=== PATIENT | female | born 1960 | race Caucasian/White ===

== ENCOUNTER → 2016-09-05 | Outpatient (CLI) | payer OTHER ==
--- NOTE | 2016-09-05 16:12 | MAMMOGRAPHY REPORT ---
BILATERAL DIGITAL SCREENING MAMMOGRAM TOMOSYNTHESIS WITH CAD: 09/05/2016 CLINICAL HISTORY: Routine screening. Patient has no complaints. TECHNIQUE: Breast tomosynthesis in addition to standard 2D mammography was performed. Current study was also evaluated with a Computer Aided Detection (CAD) system. COMPARISON: Comparison is made to exams dated: 09/12/2015 mammogram, 09/01/2015 mammogram, 08/30/2014 ma mmogram, 03/04/2014 mammogram, 09/03/2013 mammogram, and 08/14/2012 mammogram - [facility]. BREAST COMPOSITION: There are scattered areas of fibroglandular density in both breasts. FINDINGS: No suspicious masses, calcifications, or areas of architectural distortion are noted in e ither breast. There has been no significant interval change compared to prior exams. Nodular asymme try in the left lateral posterior breast on the cc view has the appearance of normal overlapping fib roglandular tissue on the tomosynthesis images, and appears similar to some of the prior exams inclu ding the 2011 and 2008 exams. IMPRESSION: ACR BI-RADS CATEGORY 2: BENIGN There is no mammographic evidence of malignancy. A 1 year screening mammogram is recommended. The p atient will receive written notification of the results. Approximately 10% of breast cancers are not detected with mammography. A negative mammographic repor t should not delay biopsy if a clinically suggestive mass is present. Katelyn Rapp M.D. /:09/05/2016 13:39:17 Harness Builder: Eva Curry, [facility] letter sent: Normal 1/2 BI-RADS Code: ACR BI-RADS Category 2: Benign
== END | disposition home or self-care (01) ==
LOC: C.MAMM 08:06
PROVIDERS: ATTEND Obstetrics & Gynecology
DX: Z12.31 Encounter for screening mammogram for malignant neoplasm of breast (principal)

== ENCOUNTER → 2016-12-13 | Outpatient (CLI) | payer OTHER | END | disposition home or self-care (01) | LOC: C.PAPS 11:15 | PROVIDERS: ATTEND Obstetrics & Gynecology | DX: Z12.4 Encounter for screening for malignant neoplasm of cervix (principal) ==

== ENCOUNTER → 2017-08-28 | Outpatient (CLI) | payer OTHER | END | disposition home or self-care (01) | LOC: C.LABBC 08:51 | PROVIDERS: ATTEND Internal Medicine | DX: E03.9 Hypothyroidism, unspecified (principal); E55.9 Vitamin D deficiency, unspecified; J45.909 Unspecified asthma, uncomplicated ==

== ENCOUNTER → 2017-09-10 | Outpatient (CLI) | payer OTHER ==
--- NOTE | 2017-09-10 15:09 | MAMMOGRAPHY REPORT ---
BILATERAL DIGITAL SCREENING MAMMOGRAM TOMOSYNTHESIS WITH CAD: 09/10/2017 CLINICAL HISTORY: Routine screening. The patient has no current complaints. TECHNIQUE: Breast tomosynthesis in addition to standard 2D mammography was performed. Current study was also evaluated with a Computer Aided Detection (CAD) system. COMPARISON: Comparison is made to exams dated: 09/05/2016 mammogram, 09/12/2015 mammogram, 09/01/2015 ma mmogram, 08/30/2014 mammogram, 03/04/2014 mammogram, and 08/27/2013 mammogram - [facility] er. BREAST COMPOSITION: There are scattered areas of fibroglandular density in both breasts. FINDINGS: No suspicious masses, calcifications, or areas of architectural distortion are noted in ei ther breast. There has been no significant interval change compared to prior exams. IMPRESSION: ACR BI-RADS CATEGORY 1: NEGATIVE There is no mammographic evidence of malignancy. A 1 year screening mammogram is recommended. The pa tient will receive written notification of the results. Approximately 10% of breast cancers are not detected with mammography. A negative mammographic report should not delay biopsy if a clinically suggestive mass is present. Katelyn Rapp M.D. ah/:09/10/2017 08:20:55 Paymaster Of Purses: Eva HERMAN(Juan)(M), [facility] letter sent: Normal 1/2 BI-RADS Code: ACR BI-RADS Category 1: Negative
== END | disposition home or self-care (01) ==
LOC: C.MAMM 08:00
PROVIDERS: ATTEND Obstetrics & Gynecology
DX: Z12.31 Encounter for screening mammogram for malignant neoplasm of breast (principal)

== ENCOUNTER → 2017-10-28 | Outpatient (CLI) | payer OTHER | END | disposition home or self-care (01) | LOC: C.LABBC 08:38 | PROVIDERS: ATTEND Internal Medicine | DX: E03.9 Hypothyroidism, unspecified (principal) ==

== ENCOUNTER 2020-08-13 01:35 | Inpatient (IN) ==
[2020-08-13] MEDS ORDERED: ASPIRIN CHEW 324 MG PO STA (01:54)
[2020-08-13] MEDS ORDERED: NITROGLYCERIN SL 0.4 MG/TAB TAB SL PRN (01:54)
[2020-08-13 02:09] LABS: Basophils # (auto) 0.01 K/uL (0-0.2); Basophils % (auto) 0.1 %; Eosinophils # (auto) 0.08 K/uL (0-0.5); Eosinophils % (auto) 0.9 %; Hematocrit (blood only) 38.2 % (37-47); Hemoglobin 12.8 g/dL (12.0-16.0); Immature Granulocytes # (auto) 0.01 K/uL (0.00-0.02); Immature Granulocytes % (auto) 0.1 %; Lymphocytes # (auto) 3.26 K/uL (1.2-3.4); Lymphocytes % (auto) 34.9 %; Mean Corpuscular Hemoglobin 29.9 pg (25-34); Mean Corpuscular Hgb Conc 33.5 g/dL (32-36); Mean Corpuscular Volume 89.3 fL (80-100); Mean Platelet Volume 9.3 fL (7.4-10.4); Monocytes # (auto) 0.82 K/uL (0.11-0.59); Monocytes % (auto) 8.8 %; Neutrophils # (auto) 5.15 K/uL (1.4-6.5); Neutrophils % (auto) 55.2 %; Platelet Count 171 K/uL (130-400); RDW Coefficient of Variation 13.3 % (11.5-14.5); RDW Standard Deviation 43.3 fL (36.4-46.3); Red Blood Count 4.28 M/uL (4.2-5.4); White Blood Count 9.33 K/uL (4.8-10.8)
[2020-08-13 02:11] LABS: iSTAT Creatinine 0.7 mg/dl (0.6-1.3); iSTAT Hemoglobin 12.6 g/dl (12.0-16.0); iSTAT Ionized Calcium 1.13 mmol/l (1.12-1.32); iSTAT Potassium 3.5 mmol/L (3.3-5.0)
[2020-08-13] MEDS ORDERED: ONDANSETRON INJ 2 MG/ML 2 ML VIAL IV STA (02:14)
[2020-08-13] MEDS ORDERED: NITROGLYCERIN SL 0.4 MG/TAB TAB SL STA (02:14)
[2020-08-13 02:27] LABS: Albumin Level 3.7 gm/dl (3.4-5.0); Calcium 8.4 mg/dl (8.5-10.1); Creatinine Clr Calc Pharmacy 69.5 ml/min; Est GFR (Non-African American) 81.9; Potassium 3.5 mmol/L (3.5-5.1)
[2020-08-13 02:37] LABS: D Dimer 380 ug/L FEU (0-500); Partial Thromboplastin Time 26.7 Seconds (21.0-31.0); Prothrombin Time 10.9 Seconds (9.0-12.0)
[2020-08-13 02:39] LABS: Albumin Globulin Ratio 0.9 (0.9-2); Bilirubin,Total 0.3 mg/dl (0.2-1); Globulin 4.1 gm/dl (2.5-4.0); Total Protein 7.8 gm/dl (6.4-8.2); Troponin I 0.087 ng/ml (0-0.045)
[2020-08-13] MEDS ORDERED: NITROGLYCERIN 2% OINTMENT 30GM TUBE ONE (02:43)
[2020-08-13] MEDS ORDERED: Heparin IV Standard *NO* Bolus ONE (02:46)
[2020-08-13] MEDS ORDERED: ACETAMINOPHEN 1,000 MG/100 ML VIAL IV STA ×2 (02:46→07:08)
[2020-08-13] MEDS ORDERED: NITROGLYCERIN 2% OINTMENT 30GM TUBE EXT ONE (02:46)
--- NOTE | 2020-08-13 03:06 | Emergency Department Note ---
History of Present Illness General Chief complaint: Cardiac Assessment Stated complaint: CHEST PAINS,INDIGESTION,UPSET STOMACH,COUGH Time Seen by Provider: 08/13/20 01:43 History of Present Illness Maximum Pain Intensity: 9 This 60-year-old female with borderline blood pressure cholesterol and hypothyroidism presents to the ER complaining of chest pain Location: Chest back and arms Quality: Stabbing Severity: Severe Duration: Tonight Timing: Started on midnight Context: Patient was concerned and came in Modifying factors: better with nothing; worse with activity Patient denies any prior heart testing. No family history of heart disease. She does not smoke. Patient states she got nauseated and the pain radiated to her jaw tonight. Patient denies fever, chills, abdominal pain, numbness, tingling, localized weakness. Home Medications Medication Instructions Recorded Confirmed Type cetirizine 5 mg tablet 5 mg PO DAILY PRN 02/18/19 08/13/20 History conj estrogen-medroxyprogesterone 1 tab PO DAILY 02/18/19 08/13/20 History 0.625 mg-2.5 mg tablet albuterol sulfate 90 mcg/actuation 1 puffs INH Q4H PRN gm 06/08/19 08/13/20 History aerosol inhaler cholecalciferol (vitamin D3) 25 2,000 units PO DAILY tab 06/08/19 08/13/20 History mcg (1,000 unit) tablet [place] Thyroid 60 mg tablet 60 mg PO 4XWK #52 tab NS 04/24/20 08/13/20 Rx rosuvastatin 5 mg tablet 5 mg PO DAILY #90 tab 05/29/20 08/13/20 Rx azelaic acid 15 % topical foam 1 applic TOPICAL BID 06/21/20 08/13/20 History [place] Thyroid 90 mg tablet 90 mg PO 3XWK #30 tab NS 07/28/20 08/13/20 Rx Allergies Allergy/AdvReac Type Severity Reaction Status Date / Time fluticasone Allergy Intermediate Hives Verified 08/13/20 02:07 [From Advair Diskus] Iodinated Contrast Media Allergy Intermediate HIVES/RASH Verified 08/13/20 02:07 salmeterol Allergy Intermediate Hives Verified 08/13/20 02:07 [From Advair Diskus] sulfamethoxazole Allergy Intermediate RED Verified 08/13/20 02:07 [From Bactrim] BLOTCHY HIVES trimethoprim [From Bactrim] Allergy Intermediate RED Verified 08/13/20 02:07 BLOTCHY HIVES iodine Allergy Mild RASH/HIVES Verified 08/13/20 02:07 morphine AdvReac Intermediate Vomiting Verified 08/13/20 02:07 Past Med/Surg History Medical History Asthma Hyperlipidemia Hypothyroidism Vitamin D deficiency Surgical History H/O total thyroidectomy History of delivery x2 Family History Aunt Breast cancer Father Prostate cancer Cancer Mother Hypertension Hearing loss Other No family history of allergies No family history of bleeding disorder Denies family history of Ovarian cancer Heart disease Myocardial infarction Colorectal cancer Stroke Social History Smoking Status: Never smoker Second Hand Exposure: No; Hx Alcohol Use: Yes Alcohol type: beer, wine and hard liquor Alcohol Intake Frequency: 2-4 x/Month Hx Substance Use: No Preferred Language: Azeri Communication Ability: Effective Visual Impairment: Limited Hearing Ability: Normal Second Operator Required: No marital status: Current Living Situation: Spouse current occupational status: employed 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 How many Children do You have: 2 Feels Safe at Home: Yes Childhood Exposure to Second-Hand Smoke: No caffeine: Yes Dental Care, Regularly: Yes Physical Activity Frequency: 1-2 Times per Week Seatbelt Use: always Sunscreen Use: Yes Review of Systems A total of 10 systems reviewed and were otherwise negative Physical Exam Vital Signs Vital Signs - 24 hr 08/13/20 01:40 08/13/20 01:50 08/13/20 01:52 Temperature 36.9 C Temperature Source Temporal Artery Scan Pulse Rate 91 H 95 H 92 H Pulse Rate from SpO2 Sensor Pulse Rhythm Regular Pulse Strength Normal Respiratory Rate 20 21 23 Respiratory Effort / Characteristics Non-Labored Spontaneous Respiratory Depth Normal Blood Pressure 175/104 H 177/102 H Blood Pressure Mean 127 127 Blood Pressure Position Sitting Pulse Oximetry 98 Oxygen Delivery Method Room Air Sepsis Recent Fever Within 48 Hours No Sepsis New/Unexplained Change in Mental Status N/A Sepsis Action Taken by Nursing No Action Required 08/13/20 01:55 08/13/20 02:00 08/13/20 02:05 Temperature Temperature Source Pulse Rate 93 H 88 98 H Pulse Rate from SpO2 Sensor Pulse Rhythm Pulse Strength Respiratory Rate 21 18 17 Respiratory Effort / Characteristics Respiratory Depth Blood Pressure Blood Pressure Mean Blood Pressure Position Pulse Oximetry Oxygen Delivery Method Sepsis Recent Fever Within 48 Hours Sepsis New/Unexplained Change in Mental Status Sepsis Action Taken by Nursing 08/13/20 02:06 08/13/20 02:10 08/13/20 02:11 Temperature Temperature Source Pulse Rate 92 H 98 H 91 H Pulse Rate from SpO2 Sensor 91 H 97 H 93 H Pulse Rhythm Pulse Strength Respiratory Rate 17 18 20 Respiratory Effort / Characteristics Respiratory Depth Blood Pressure 158/100 H 148/101 H Blood Pressure Mean 119 114 Blood Pressure Position Pulse Oximetry 99 98 98 Oxygen Delivery Method Sepsis Recent Fever Within 48 Hours Sepsis New/Unexplained Change in Mental Status Sepsis Action Taken by Nursing 08/13/20 02:13 08/13/20 02:15 08/13/20 02:16 Temperature Temperature Source Pulse Rate 90 94 H Pulse Rate from SpO2 Sensor 89 93 H Pulse Rhythm Pulse Strength Respiratory Rate 15 19 Respiratory Effort / Characteristics Respiratory Depth Blood Pressure 142/89 H Blood Pressure Mean 115 Blood Pressure Position Pulse Oximetry 97 98 Oxygen Delivery Method Room Air Sepsis Recent Fever Within 48 Hours Sepsis New/Unexplained Change in Mental Status Sepsis Action Taken by Nursing 08/13/20 02:20 08/13/20 02:25 08/13/20 02:30 Temperature Temperature Source Pulse Rate 85 96 H 86 Pulse Rate from SpO2 Sensor 85 98 H 85 Pulse Rhythm Pulse Strength Respiratory Rate 13 20 14 Respiratory Effort / Characteristics Respiratory Depth Blood Pressure 135/84 136/88 143/85 H Blood Pressure Mean 107 112 98 Blood Pressure Position Pulse Oximetry 98 97 96 Oxygen Delivery Method Sepsis Recent Fever Within 48 Hours Sepsis New/Unexplained Change in Mental Status Sepsis Action Taken by Nursing 08/13/20 02:31 08/13/20 02:35 08/13/20 02:40 Temperature Temperature Source Pulse Rate 86 83 77 Pulse Rate from SpO2 Sensor 87 83 78 Pulse Rhythm Pulse Strength Respiratory Rate 20 18 19 Respiratory Effort / Characteristics Respiratory Depth Blood Pressure 140/78 136/80 Blood Pressure Mean 94 91 Blood Pressure Position Pulse Oximetry 97 96 96 Oxygen Delivery Method Sepsis Recent Fever Within 48 Hours Sepsis New/Unexplained Change in Mental Status Sepsis Action Taken by Nursing 08/13/20 02:45 08/13/20 02:46 08/13/20 02:47 Temperature Temperature Source Pulse Rate 78 82 81 Pulse Rate from SpO2 Sensor 78 83 82 Pulse Rhythm Pulse Strength Respiratory Rate 17 16 17 Respiratory Effort / Characteristics Respiratory Depth Blood Pressure 136/83 121/91 Blood Pressure Mean 105 110 Blood Pressure Position Pulse Oximetry 97 98 98 Oxygen Delivery Method Sepsis Recent Fever Within 48 Hours Sepsis New/Unexplained Change in Mental Status Sepsis Action Taken by Nursing VITALS: Vitals are noted on the nurse's note and reviewed by myself. Vital signs hypertensive GENERAL: Pleasant female, in no acute distress, nondiaphoretic, well-developed well-nourished. SKIN: Capillary reflex less than 2 seconds. HEENT: Normocephalic. PERRLA. EOMI. Nares patent. Mucous membranes moist. Neck is supple without nuchal rigidity. HEART: Regular rate and rhythm; chest nontender to palpation LUNGS: Clear to auscultation bilaterally without wheezes, rales or rhonchi. No retractions or accessory muscle use. ABDOMEN: Positive bowel sounds x 4. Normal tympanic percussion. Soft, nontender, without masses or organomegaly. Noonan sign negative. No guarding or rebound tenderness. MUSCULOSKELETAL: No gross musculoskeletal defects. NEURO: Patient was alert and oriented to person place and time. No focal neurological deficits. Course Administered Medications Nitroglycerin (Nitroglycerin Sl 0.4 Mg/Tab Tab) 0.4 mg SL UD PRN PRN Reason: Chest Pain Stop: 09/12/20 01:53 Last Admin: 08/13/20 02:05 Dose: 0.4 mg Documented by: [id number] Discontinued Medications Aspirin (Aspirin Chew 324 Mg) 243 mg PO NOW STA Stop: 08/13/20 01:55 Last Admin: 08/13/20 02:04 Dose: 243 mg Documented by: [id number] Nitroglycerin (Nitroglycerin Sl 0.4 Mg/Tab Tab) 0.4 mg SL NOW STA Stop: 08/13/20 02:15 Last Admin: 08/13/20 02:18 Dose: 0.4 mg Documented by: [id number] Nitroglycerin (Nitroglycerin 2% Ointment 30gm Tube) Confirm Administered Dose 18 inch .ROUTE .K-MED ONE Stop: 08/13/20 02:44 Last Admin: 08/13/20 02:46 Dose: 0.5 inch Documented by: [id number] Nitroglycerin (Nitroglycerin 2% Ointment 30gm Tube) 0.5 inch EXT NOW ONE Stop: 08/13/20 02:47 Last Admin: 08/13/20 02:53 Dose: Not Given Documented by: [id number] Ondansetron HCl (Ondansetron Inj 2 Mg/Ml 2 Ml Vial) 4 mg IV NOW STA Stop: 08/13/20 02:15 Last Admin: 08/13/20 02:19 Dose: 4 mg Documented by: [id number] Critical Care Time Critical Care Time: Yes Total Critical Care Time: 35 I have personally spent 35 minutes of critical care time in the direct management of this patient. This includes bedside care, interpretation of diagnostic studies, and testing, discussion with consultants, patient, and family members, and other required patient management activities. This 35 minutes is in excess of all separately billable procedures. Medical Decision Making Medical Records Attestation: I reviewed the patient's medical records. Home Medications Current Medication List: was personally reviewed by me Laboratory Data Attestation: I reviewed the patient's lab results. Result diagrams: 08/13/20 01:50 08/13/20 01:50 Lab Results 08/13/20 08/13/20 08/13/20 Range/Units 01:50 01:50 01:50 WBC 9.33 (4.8-10.8) K/uL RBC 4.28 (4.2-5.4) M/uL Hgb 12.8 (12.0-16.0) g/dL POC Hgb (12.0-16.0) g/dl Hct 38.2 (37-47) % POC Hct (37-47) % MCV 89.3 (80-100) fL MCH 29.9 (25-34) pg MCHC 33.5 (32-36) g/dL RDW Std Deviation 43.3 (36.4-46.3) fL RDW Coeff of Juan 13.3 (11.5-14.5) % Plt Count 171 (130-400) K/uL MPV 9.3 (7.4-10.4) fL Immature Gran % (Auto) 0.1 % Neut % (Auto) 55.2 % Lymph % (Auto) 34.9 % Lynn % (Auto) 8.8 % Eos % (Auto) 0.9 % Baso % (Auto) 0.1 % Neut # (Auto) 5.15 (1.4-6.5) K/uL Lymph # (Auto) 3.26 (1.2-3.4) K/uL Lynn # (Auto) 0.82 H (0.11-0.59) K/uL Eos # (Auto) 0.08 (0-0.5) K/uL Baso # (Auto) 0.01 (0-0.2) K/uL Immature Gran # (Auto) 0.01 (0.00-0.02) K/uL PT 10.9 (9.0-12.0) Seconds INR 1.0 (0.9-1.1) APTT 26.7 (21.0-31.0) Seconds PTT Ratio 1.0 D-Dimer 380 (0-500) ug/L FEU POC Sodium (135-144) mmol/L Sodium 138 (136-145) mmol/L POC Potassium (3.3-5.0) mmol/L Potassium 3.5 (3.5-5.1) mmol/L POC Chloride (101-112) mmol/L Chloride 105 (98-107) mmol/L Carbon Dioxide 29 (21-32) mmol/L POC Total CO2 (24-31) mmol/L Anion Gap 4.0 (3-11) POC Anion Gap (16-25) mmol/L POC BUN (7-18) mg/dl BUN 22 H (7-18) mg/dl Creatinine 0.79 (0.6-1.2) mg/dl POC Creatinine (0.6-1.3) mg/dl Est Cr Clr Drug Dosing 69.5 ml/min Est GFR ( Amer) 95.0 Est GFR (Non-Af Amer) 81.9 BUN/Creatinine Ratio 28.0 H (10-20) Glucose 125 H (70-99) mg/dl POC Glucose (other) (70-99) mg/dl Calcium 8.4 L (8.5-10.1) mg/dl POC Ioniz Calcium Susanne (1.12-1.32) mmol/l Total Bilirubin 0.3 (0.2-1) mg/dl AST 12 L (15-37) U/L ALT 14 (12-78) U/L Alkaline Phosphatase 58 (45-117) U/L Troponin I 0.087 H* (0-0.045) ng/ml Total Protein 7.8 (6.4-8.2) gm/dl Albumin 3.7 (3.4-5.0) gm/dl Globulin 4.1 H (2.5-4.0) gm/dl Albumin/Globulin Ratio 0.9 (0.9-2) Lipase 565 H (73-393) U/L 08/13/20 Range/Units 01:57 WBC (4.8-10.8) K/uL RBC (4.2-5.4) M/uL Hgb (12.0-16.0) g/dL POC Hgb 12.6 (12.0-16.0) g/dl Hct (37-47) % POC Hct 37 (37-47) % MCV (80-100) fL MCH (25-34) pg MCHC (32-36) g/dL RDW Std Deviation (36.4-46.3) fL RDW Coeff of Juan (11.5-14.5) % Plt Count (130-400) K/uL MPV (7.4-10.4) fL Immature Gran % (Auto) % Neut % (Auto) % Lymph % (Auto) % Lynn % (Auto) % Eos % (Auto) % Baso % (Auto) % Neut # (Auto) (1.4-6.5) K/uL Lymph # (Auto) (1.2-3.4) K/uL Lynn # (Auto) (0.11-0.59) K/uL Eos # (Auto) (0-0.5) K/uL Baso # (Auto) (0-0.2) K/uL Immature Gran # (Auto) (0.00-0.02) K/uL PT (9.0-12.0) Seconds INR (0.9-1.1) APTT (21.0-31.0) Seconds PTT Ratio D-Dimer (0-500) ug/L FEU POC Sodium 138 (135-144) mmol/L Sodium (136-145) mmol/L POC Potassium 3.5 (3.3-5.0) mmol/L Potassium (3.5-5.1) mmol/L POC Chloride 103 (101-112) mmol/L Chloride (98-107) mmol/L Carbon Dioxide (21-32) mmol/L POC Total CO2 26 (24-31) mmol/L Anion Gap (3-11) POC Anion Gap 14.0 L (16-25) mmol/L POC BUN 22 H (7-18) mg/dl BUN (7-18) mg/dl Creatinine (0.6-1.2) mg/dl POC Creatinine 0.7 (0.6-1.3) mg/dl Est Cr Clr Drug Dosing ml/min Est GFR ( Amer) Est GFR (Non-Af Amer) BUN/Creatinine Ratio (10-20) Glucose (70-99) mg/dl POC Glucose (other) 130 H (70-99) mg/dl Calcium (8.5-10.1) mg/dl POC Ioniz Calcium Susanne 1.13 (1.12-1.32) mmol/l Total Bilirubin (0.2-1) mg/dl AST (15-37) U/L ALT (12-78) U/L Alkaline Phosphatase (45-117) U/L Troponin I (0-0.045) ng/ml Total Protein (6.4-8.2) gm/dl Albumin (3.4-5.0) gm/dl Globulin (2.5-4.0) gm/dl Albumin/Globulin Ratio (0.9-2) Lipase (73-393) U/L Imaging Data Attestation: I personally reviewed and interpreted this imaging study as follows: MDM Narrative Prior records/ancillary studies reviewed. Triage Nursing notes reviewed. The patient's history was concerning for chest pain. Differential diagnosis: Etiologies such as cardiac ischemia, aortic dissection, pulmonary embolism, pneumonia, pneumothorax, musculoskeletal, infections, pericarditis, myocarditis, esophageal rupture, gastrointestinal, as well as others were entertained. Physical examination: As above. ER treatment provided: An order was placed for continuous cardiac monitoring. The monitor shows a rate of 60-100 with a sinus rhythm. Aspirin, nitroglycerin, Nitropaste On reassessment the patient felt better. Diagnostic interpretation by me: #1: The electrocardiogram was normal sinus, normal intervals, ST depression in the inferior leads and V6, no old EKG. Rate of 94. Impression normal sinus rhythm with ST depressions in the inferior leads interpreted by myself EKG ordered for chest pain I think arrhythmia is unlikely. EKG shows no interval abnormalities such as QT prolongation or WPW. There are no findings to suggest Brugada syndrome. Cardiac monitoring in the emergency department reveals no tachycardic or bradycardic dysrhythmia. Hypertrophic cardiomyopathy was considered but there are no clear historical elements pointing toward this. EKG is not suggestive. The QRS voltage is not extremely large and there are no suggestive Q waves. #2: EKG ordered for chest pain EKG: Normal sinus, normal intervals, T wave inversion lead III, rate of 100. Impression normal sinus rhythm with T wave version in in lead 3 which is improved from prior EKG interpreted by myself I think arrhythmia is unlikely. EKG shows normal sinus rhythm with no interval abnormalities such as QT prolongation or WPW. There are no findings to suggest Brugada syndrome. Cardiac monitoring in the emergency department reveals no tachycardic or bradycardic dysrhythmia. Hypertrophic cardiomyopathy was cons idered but there are no clear historical elements pointing toward this. EKG is not suggestive. The QRS voltage is not extremely large and there are no suggestive Q waves. The labs revealed elevated troponin. Negative dimer Imaging studies: Chest x-ray with no acute consolidation, pneumothorax or free air per my interpretation HEART SCORE: Hx: high/mod/low suspicion: 2 ECG: ST depression/nonspecific changes/normal: 2 Age: Greater than 65/45-64/less than 45: 1 Risk factors: (Hypertension, hyperlipidemia, diabetes, coronary disease, tobacco use, cocaine use): 2 Troponin: Greater than 2 times normal limits/1-2 times normal limits/normal: 1 Total: 8 Consultation: A consultation was placed with the hospitalist. The case was discussed and diagnostics were reviewed. The patient was evaluated in the ER for further treatment. Exam and history seem consistent with NSTEMI. Patient was started on heparin. This was reviewed with the hospitalist, Dr. Suero. Repeat EKG is improved after nitroglycerin. Patient took 1 aspirin at home and was given the rest here. Patient was pain-free after nitroglycerin and paste was placed. Patient is agreeable to treatment plan of admission. Heart score is high. D-dimer is negative. Patient was reassessed multiple times. She remained stable. Repeat EKG was improved. By the evaluation outlined above emergent etiologies such as aortic dissection, pulmonary embolism, pneumonia, pneumothorax, infections, pericarditis, myocarditis, gastrointestinal, as well as others were deemed relatively unlikely. The pt informed about the findings as listed above. All questions were answered and pleased with the treatment. The chart was completed utilizing [employer] Speech voice recognition software. Grammatical errors, random word insertions, pronoun errors, and incomplete sentences are an occassional consequence of this system due to software limitations, ambient noise, and hardware issues. Any formal questions or concerns about the content, text, or information contained within the body of this dictation should be directly addressed to the physician executive marketing assistant for clarification. Impression & Plan Acute non-ST elevation myocardial infarction (NSTEMI) Discharge Plan Visit Data Chief Complaint: Cardiac Assessment Stated Complaint: CHEST PAINS,INDIGESTION,UPSET STOMACH,COUGH ED Provider: Valarie Oliva ED Midlevel Provider: Sharon Olmos Discharge Problem: Acute non-ST elevation myocardial infarction (NSTEMI) Patient Disposition: Admitted As Inpatient Condition: Good Forms Stand Alone Forms: [facility] femeninas Prescriptions Prescriptions: No Action thyroid (pork) [[place] Thyroid] 60 mg tablet 60 mg PO 4XWK Qty: 52 RF: 3 rosuvastatin 5 mg tablet 5 mg PO DAILY Qty: 90 RF: 3 thyroid (pork) [[place] Thyroid] 90 mg tablet 90 mg PO 3XWK Qty: 30 RF: 5 Prempro 0.625-2.5 mg tablet 1 tab PO DAILY RF: 0 cetirizine 5 mg tablet 5 mg PO DAILY PRN (Reason: SEASONAL ALLERGIES) RF: 0 albuterol sulfate [ProAir HFA] 90 mcg/actuation HFA aerosol inhaler 1 puffs INH Q4H PRN (Reason: shortness of breath or wheezing) RF: 0 cholecalciferol (vitamin D3) 1,000 unit (25 mcg) tablet 2,000 units PO DAILY RF: 0 azelaic acid 15 % foam 1 applic topical BID RF: 0 Referrals Referrals: Abrahan Louis MD [Primary Care Provider] -
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
[2020-08-13] MEDS: HEPARIN SODIUM/DEXTROSE 25,000 UNITS/500 ML BAG IV SCH (03:30)
[2020-08-13] MEDS ORDERED: MoRPHine SULFATE 2 MG/ML CARP IV PRN (06:32)
--- NOTE | 2020-08-13 08:33 | XRay Report ---
XR chest 1V portable HISTORY: 60 years-old Female Chest Pain acute atypical chest pain COMPARISON: None TECHNIQUE: Portable AP view of the chest FINDINGS: Cardiomediastinal and hilar silhouettes are within normal limits. No pneumothorax, pleural effusion, airspace consolidation or overt pulmonary edema. Bones appear grossly intact. IMPRESSION: No acute process. ACT 112: Negative or not required by law. The above report was generated using voice recognition software. It may contain grammatical, syntax o r spelling errors. Electronically signed by: Umair Puga M.D. 08/13/2020 8:31 AM
[2020-08-13] MEDS ORDERED: ROSUVASTATIN CALCIUM 10 MG TAB PO SCH (09:00)
[2020-08-13] MEDS ORDERED: ARMOUR THYROID 30 MG TAB PO SCH (09:00)
[2020-08-13] MEDS: ASPIRIN 81 MG ECTAB PO SCH (09:06)
[2020-08-13] MEDS: ROSUVASTATIN CALCIUM 20 MG TAB PO SCH (09:06)
[2020-08-13] MEDS: METOPROLOL TARTRATE 25 MG TAB PO SCH ×2 (09:06→21:13)
[2020-08-13 10:10] LABS: Partial Thromboplastin Ratio 1.8
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
[2020-08-13] MEDS ORDERED: FAMOTIDINE 20 MG TAB PO ONE (10:14)
[2020-08-13] MEDS ORDERED: diphenhydrAMINE Capsule 25 MG CAP PO ONE (10:14)
[2020-08-13 11:02] LABS: Partial Thromboplastin Time 51.5 Seconds (21.0-31.0)
--- NOTE | 2020-08-13 11:46 | Communication Note ---
Date of Service: August 13, 2020 seen in f/u from early am admission mostly feeling better - still some chest/GI sx off and on, but nothing like before. no sob. back pain mostly better. main complaint is headache related to nitro eats fairly mediterannean, walks most days for a half hour or so - although less in winter/when it's cold. notes borderline cholesterol and recently borderline BP - but otherwise no singificant med hx vitals noted nad heent nc at mmm breathing unlabored no accessory muscles or conversational dyspnea. msk/ost no suboccipital tenderness. skin no rashes no pallor or icterus NSTEMI -sx mostly abated, troponin fortunately minimal overall elevation although certainly enough to suggest this is truly cardiac in origin -cath tomorrow -heparin, beta evelin, antiplatelet, acei, statin, prn nitro, prn morphine for now -echo -educated extensively and answered all questions to the best of my ability otherwise as per H&P and cardiology consult
--- NOTE | 2020-08-13 12:53 | XCELERA ---
[id number] [id number]
--- NOTE | 2020-08-13 13:12 | Electrocardiogram Report ---
Test Reason : Blood Pressure : / mmHG Vent. Rate : 094 BPM Atrial Rate : 094 BPM P-R Int : 166 ms QRS Dur : 090 ms QT Int : 368 ms P-R-T Axes : 071 078 020 degrees QTc Int : 460 ms Normal sinus rhythm Possible Left atrial enlargement Minor ST segement depressions suggestive of ischemia Borderline ECG No previous ECGs available Confirmed by Armando Kwok ([id number]) on 08/13/2020 1:11:46 PM Referred By: REFERRED SELF Confirmed By:Bud Kwok
--- NOTE | 2020-08-13 13:12 | Electrocardiogram Report ---
Test Reason : Blood Pressure : / mmHG Vent. Rate : 100 BPM Atrial Rate : 100 BPM P-R Int : 150 ms QRS Dur : 094 ms QT Int : 382 ms P-R-T Axes : 044 056 021 degrees QTc Int : 492 ms Normal sinus rhythm Possible Left atrial enlargement Prolonged QT Abnormal ECG When compared with ECG of 13-AUG-2020 01:47, (unconfirmed) ST segement depressions have resolved Confirmed by Armando Kwok ([id number]) on 08/13/2020 1:12:27 PM Referred By: REFERRED SELF Confirmed By:Bud Kwok
[2020-08-13] MEDS ORDERED: predniSONE 50 MG TAB PO SCH (18:00)
[2020-08-14] MEDS: predniSONE 50 MG TAB PO SCH ×2 (01:53→09:16)
[2020-08-14] MEDS: HEPARIN SODIUM/DEXTROSE 25,000 UNITS/500 ML BAG IV SCH (01:53)
[2020-08-14 06:04] LABS: Partial Thromboplastin Ratio 2.9
[2020-08-14 06:13] LABS: Partial Thromboplastin Time 80.9 Seconds (21.0-31.0)
[2020-08-14 06:20] LABS: BUN Creatinine Ratio 18.2 (10-20); Calcium 8.3 mg/dl (8.5-10.1); Creatinine Clr Calc Pharmacy 79.6 ml/min; Est GFR (African American) 106.2; Est GFR (Non-African American) 91.7; Magnesium 1.8 mg/dl (1.8-2.4); Potassium 3.6 mmol/L (3.5-5.1)
[2020-08-14 06:25] LABS: Thyroid Stimulating Hormone 0.102 uIu/ml (0.300-4.500)
[2020-08-14] MEDS ORDERED: HEPARIN (PORCINE) 1000 UNIT/ML 10 ML (CATH LAB USE ONLY) ONE (07:14)
[2020-08-14] MEDS ORDERED: fentaNYL citrate 100 MCG/2 ML VIAL ONE (07:14)
[2020-08-14] MEDS ORDERED: niCARdipine HCL INJ 2.5 MG/ML 10 ML AMP ONE (07:14)
[2020-08-14] MEDS ORDERED: MIDAZOLAM HCL 1 MG/ML 2ML VIAL ONE ×2 (07:14→07:43)
[2020-08-14] MEDS ORDERED: NITROGLYCERIN/D5W 100MCG/ML 20ML SYR ONE (07:15)
--- NOTE | 2020-08-14 07:29 | Pre Anesthesia Assessment ---
Date of Service August 14, 2020 Pre Sedation Assessment Vital Signs Temp Pulse Pulse Resp BP BP Pulse Ox 08/14/20 07:17 72 08/14/20 07:11 111 H 17 146/87 H 98 08/14/20 06:58 36.9 C 112 H 18 148/94 H 96 08/13/20 23:53 37.4 C 90 17 135/88 95 08/13/20 19:36 37.0 C 80 17 128/81 96 08/13/20 17:00 75 08/13/20 16:10 37.0 C 83 18 127/78 95 08/13/20 10:59 37.0 C 81 16 133/82 95 08/13/20 07:36 36.7 C 88 18 137/78 96 Cardiovascular + regular rate Respiratory + respiratory effort normal Pre-Sedation Airway Assessment Smoking Status: Never smoker Hx Sleep Apnea: No Hx Difficult Intubation: No Short, Thick Neck: No Thyromental Distance: > or= 3.5 Finger Breadths Oral Cavity: + WNL Mallampati Class: II ASA: ASA3 NPO Status Date of Last Intake of Fluids: 08/13/20 Time of Last Intake of Fluids: 21:00 Date of Last Intake of Solid Food: 08/13/20 Time of Last Intake of Solid Foods: 21:00 Procedure Planning Contraindications for Sedation: none Current Medications Reviewed: Yes Notes The planned sedation has been discussed with the patient. Informed Consent was obtained. I have identified the patient, determined the appropriateness of sedation and have assessed the patient immediately prior to the procedure. All medicine(s) and interventions are by my order.
[2020-08-14 07:48] LABS: Estimated Average Glucose 117 mg/dl; Hemoglobin A1C 5.7 % (4.5-5.6)
--- NOTE | 2020-08-14 08:10 | Cardiac Catheterization ---
[facility] Data: Manager Paper Cardiac Status Clinical evaluation leading to the procedure CAD Presenation: Non STEMI Diagnostic Physicians Name: Armando Kwok MD Closure Device Recommendations: PCI without planned CABG Cardiac Cath Procedure Full Procedure Date August 14, 2020 Pre-Procedure Diagnosis Pre-Procedure Diagnosis: Non STEMI AUC Score AUC Score: 8 Post-Procedure Diagnosis Post-Procedure Diagnosis: Severe CAD and Normal Intracardiac Pressures Procedure(s) Performed Procedure(s) Performed: Coronary Angiography and Left Heart Cath Kettle Worker Armando Kwok MD Estimated Blood Loss Estimated Blood Loss: 5cc Medication(s) Medication(s): Fentanyl, Heparin, Lidocaine 1%, Nicardipine, Nitroglycerin and Versed Summary of Findings Procedure performed: Left heart catheterization, selective coronary angiography Staff privacy manager: Armando Kwok MD Indication: Patient is a 60-year-old woman without a known history of coronary disease who is been experiencing symptoms of back pain and irritation. The symptoms have been intermittent in nature. She presented to the hospital for an evaluation and was noted to have dynamic ST segment changes as well as elevated cardiac biomarkers. Based on her symptoms and objective findings she was advised to consider coronary angiography. Procedure in detail: The patient was informed of the risk benefits and alternatives to the intended procedure. She understood and wished to proceed. She was taken to the cardiac catheterization suite in a fasting state. Due to a contrast allergy the patient did undergo premedication overnight with prednisone, diphenhydramine and an H2 evelin. Conscious stage was administered per protocol and the patient was monitored electrocardiographically throughout today's procedure. The right radial area was prepped and draped in usual sterile fashion. The area over the right radial artery was then anesthetized using subcutaneous ministration of a lidocaine solution. The right radial artery was subsequently accessed using Seldinger technique. A sheath was placed over guidewire at the site use facilitate passage of the cardiac catheters for selective coronary angiography and left heart catheterization. Images were obtained in multiple orthogonal views prior to removal of the catheter. Based on the findings of angiography the patient was referred for immediate percutaneous intervention. Patient tolerated this portion of the procedure well. There were no immediate complications. Equipment used: 5 [place] 4 4 [place] JR4 Coronary angiography: Left main: Left main coronary was very short and there was nearly dual ostial physiology. No ostial disease noted in the left main. Left anterior descending colon left anterior descending was a large transapical vessel. It produced a very diminutive series of diagonal branches with a medium sized mid diagonal branch. There was some luminal irregularities in the proximal LAD and a very discrete acute-looking lesion in the mid LAD estimated at 90%. The remainder the vessel was free of obstructive disease. Left circumflex: Left circumflex was a large nondominant system. It produced a diminutive first OM and a large branching second OM system. There is a very large third OM and a small ongoing AV groove vessel. There were no obstructive lesions in the left circumflex distribution Right coronary artery: Right coronary system was dominant and produced the PLB and PDA branch. There was a discrete 50% stenosis in its proximal portion. Impression: Acute coronary syndrome involving lesion in the mid LAD Nonobstructive disease involving the right coronary artery Right dominant coronary system Normal intracardiac pressures No evidence of aortic stenosis Hemodynamics Rest Ao:: 130/85 mmHg Final Ao: 149/101 mmHg LV: 108/5 mmHg left ventricular end-diastolic pressure was 12 mmHg Recommendations Recommendations: PCI without planned CABG Specimens Specimens: None Radiation Exposure (mGy) 643 Contrast (mls) 40 Procedural Complication(s) None Disposition PCU I attest to the content of the Intraoperative Record and any orders documented therein. Any exceptions are noted below. [facility] Card Cath Procedure Codes Cardiac Catheterization Procedure 1: Cardiovascular Cath Procedures: 57062 Coronaries and LHC (+/-LV) Moderate Sedation Procedure 1: Sedation/Anesthesia: 16291 Mod Sedation by the same physician;Init15 Min Child Age 5 & Up PG Care Time/CCT Total # of Minutes Spent Total Time Spent with Patient: Total time spent is greater than 50% in coordination of care (as documented) at patient's floor/unit and/or counseling patient:
--- NOTE | 2020-08-14 08:45 | Post Anesthesia Assessment ---
Date of Service August 14, 2020 Post Sedation Assessment Vital Signs Temp Pulse Pulse Resp BP BP Pulse Ox 08/14/20 07:17 72 08/14/20 07:11 111 H 17 146/87 H 98 08/14/20 06:58 98.4 F 112 H 18 148/94 H 96 08/13/20 23:53 99.3 F 90 17 135/88 95 08/13/20 19:36 98.6 F 80 17 128/81 96 08/13/20 17:00 75 08/13/20 16:10 98.6 F 83 18 127/78 95 08/13/20 10:59 98.6 F 81 16 133/82 95 Recovery Score Activity: Moves 4 extremities Respiration: Deep Breath/Cough Circulation: +/-20% PreAnes Value Consciousness: Fully Awake Oxygen Saturation: O2 needed for >90% Discharge Sedation Level of Care: Fast Track Phase II Post Sedation Plan On clinical assessment, the patient appears to have tolerated the sedation without complications. Patient is recovering as anticipated. Patient will continue to be monitored by nursing and may be discharged when sedation discharge criteria are met per below protocol. Upon Completions of procedure up to 15 minutes continue every 5 minute vital signs and the P.A.R. score; then discharge to a Phase I or Fast Track to Phase II per the following guidelines: * Discharge Patient to appropriate Phase II area if PAR is 8 or greater or return to pre- procedure baseline. The post - procedure orders will be as directed. * If PAR score is less than 8 or not return to pre-procedure baseline then patient will follow Phase I monitoring till PAR is reached for Phase II. The Phase I may be done in procedure room or may call to secure a Phase I area. * If naloxone or flumazenil are used for reversal, hold in Phase I for continued monitoring from when last reversal dose was given for a minimum of 60 minutes or longer pending the nurse and/or physician discretion of patient condition before discharge to Phase II. Please call the Sedation Physician to re-evaluate and complete post-note for discharge to Phase II area. Do NOT discharge from procedure sedation or Phase 1 until post- sedation evaluation note is complete by procedure /sedation MD Sedation Discharge Instructions to be given to the patient at discharge to home.
--- NOTE | 2020-08-14 08:49 | Post Operative Brief Note ---
Cardiology Brief Post Op Date of Surgery August 14, 2020 Pre & Post Diagnosis Coronary artery disease Procedure -- Pipe Insulator Helper Armando Dow MD Chief Of Staff Doctor Angeli Estimated Blood Loss 15 Findings See Below Successful PCI of proximal to mid LAD with 3.0 x 26 mm [place]; post-dilated with 3.5 NC. Anesthesia Type RN Sedation Complications none Disposition Accompanied Patient To Recovery: No Disposition: PCU Overlapping Procedure I was present for: the critical portions of procedure. I was immediately available: during the entire case. Back up surgeon: was not required during procedure.
[2020-08-14] MEDS ORDERED: ACETAMINOPHEN 325 MG TAB PO PRN (08:50)
[2020-08-14] MEDS ORDERED: ONDANSETRON INJ 2 MG/ML 2 ML VIAL IV PRN (08:50)
[2020-08-14] MEDS: TICAGRELOR 90 MG TAB PO SCH ×3 (08:59→20:25)
[2020-08-14] MEDS: SODIUM CHLORIDE 0.9% 1000ML 1,000 ML IV SCH ×2 (09:14→19:11)
[2020-08-14] MEDS: METOPROLOL TARTRATE 25 MG TAB PO SCH ×2 (09:15→20:25)
[2020-08-14] MEDS: ARMOUR THYROID 30 MG TAB PO SCH (09:16)
[2020-08-14] MEDS: ASPIRIN 81 MG ECTAB PO SCH (09:16)
[2020-08-14] MEDS: lisinopril 5 MG TAB PO SCH (09:16)
[2020-08-14] MEDS: ROSUVASTATIN CALCIUM 20 MG TAB PO SCH (09:16)
[2020-08-14 12:49] LABS: Partial Thromboplastin Ratio 1.5; Partial Thromboplastin Time 42.9 Seconds (21.0-31.0)
--- NOTE | 2020-08-14 13:15 | Cardiac Catheterization ---
[facility] Data: Podiatric Technician Cardiac Status Clinical evaluation leading to the procedure CAD Presenation: Non STEMI Anginal Classification: CCS IV Heart Failure: No Cardiogenic Shock within 24 Hours: No Cardiac Arrest within 24 Hours: No Imaging Studies Past 6 Months: Yes Stress Studies Past 6 Months: No Diagnostic Physicians Name: Armando Dow MD Status: Elective Closure Device Percutaneous Entry Location: Radial Closure Device: Radial Band Recommendations: PCI without planned CABG PCI Indication: PCI for high risk Non-FLORES Lesion Segment Name: Mid LAD Culprit Artery: Yes Stenosis Prior to Rx (%): 80 Chronic Total Occlusion: No IVUS: Yes FFR: No Pre-Procedure JUAN ALBERTO Flow: 3 Previously Treated Lesion: No Lesion Length (mm): 23 Thrombus Present: Yes Bifurcation Lesion: No Guidewire Across Lesion: Stenosis Post-Procedure (%): 0 Post-Procedure JUAN ALBERTO Flow: 3 Devices(s) Deployed: Yes Yes Intraprocedure Events Significant Disection: No Perforation: No Cardiac Cath Procedure Full Procedure Date August 14, 2020 Pre-Procedure Diagnosis Pre-Procedure Diagnosis: Non STEMI AUC Score AUC Score: 8 Post-Procedure Diagnosis Post-Procedure Diagnosis: Severe CAD and Successful PCI Procedure(s) Performed Procedure(s) Performed: Coronary Angiography, Drug Eluting Stent and IVUS Supervisor [place] Armando Dow MD Regional Economic Liaison(s) Angeli Estimated Blood Loss Estimated Blood Loss: 15 Medication(s) Medication(s): Fentanyl, Heparin, Lidocaine 1%, Nicardipine, Nitroglycerin and Versed Medication(s): Ticagrelor Summary of Findings Indication: NSTEMI Access: 6 Fr right radial artery Catheters: EBU 3.5 guide Findings: For full details of patient's coronary angiography please see cath report dictated by Dr. Kwok. Briefly, patient found to have severe, acute mid LAD disease. Decision to proceed with PCI. -- PCI -- Antithrombotic therapy: Heparin, ticagrelor Procedure: Left main cannulated with EBU 3.5 guide BMW wire passed across lesion into distal vessel [place] IVUS catheter placed into mid LAD to assess length of disease segment and for vessel sizing. Pullback revealed acute, severe mid segment disease (MLA 3.0 mm, 80% stenosis) with mild to moderate disease extending back into proximal segment. Mid LAD lesion predilated with 2.5 compliant balloon Dilated lesion stented with 3.0 x 26 mm Blas drug-eluting stent Stent post-dilated with 3.5 noncompliant balloon Repeat IVUS showed well-expanded, well apposed stent IC vasodilators administered for spasm Post procedure JUAN ALBERTO 3 flow, stent well expanded with minimal residual stenosis and no apparent cardiac complications. Arterial Closure: TR band Summary: 1. Successful PCI of proximal to mid LAD with single drug-eluting stent (3.0 x 26 mm [place]; postdilated with 3.5 NC) Recommendations: To PCU for continued monitoring Loaded with ticagrelor 180 mg in Podiatric Technician Continue dual-antiplatelet therapy for at least 1 year Continue statin, and ASCVD risk factor modification Consult cardiac Rehab Hemodynamics Rest Ao:: 130/85/106 Final Ao: 114/64/88 LV: -- Recommendations Recommendations: PCI without planned CABG Specimens Specimens: None Radiation Exposure (mGy) 906 Contrast (mls) 100 total Fluids (cc crystalloids) Fluids (cc crystalloids): 133 Drains Drains: None Anesthesia Moderate Procedural Complication(s) None Disposition PCU I attest to the content of the Intraoperative Record and any orders documented therein. Any exceptions are noted below. [facility] Card Cath Procedure Codes Therapeutic Services & Ancillary Proc Procedure 1: Cardiovascular Tx and Anc Procedures: 52467 IV Ultrasound (Coronary or Graft) Moderate Sedation Procedure 1: Sedation/Anesthesia: 74186 Mod Sedation by the same physician; Ea [id number] Minutes Stenting Procedure 1: Cardiovascular Stent Procedures: 43703 Perc transcatheter placement of intracoronary stent(s), with ang PG Care Time/CCT Total # of Minutes Spent Total Time Spent with Patient: Total time spent is greater than 50% in coordination of care (as documented) at patient's floor/unit and/or counseling patient:
--- NOTE | 2020-08-14 13:20 | Hospitalist Progress Note ---
Date of Service August 14, 2020 Assessment & Plan (1) Acute non-ST elevation myocardial infarction (NSTEMI): now stable does show a degree of ischemic cardiomyopathy (hfref) on echo (2) Coronary artery disease: med management, stent, secondary risk reduction, lifestyle (3) DVT prophylaxis: anticoagulation (4) Discharge planning issues: monitor overnight - anticipate home tomorrow (5) Hyperlipidemia: rosuvastatin (6) Hypothyroidism: TSH sl low but acutely ill ?sick euthyroid - vs erratic releast of armour - either way not symptomatically hyperthyroid - outpt f/u (7) Vitamin D deficiency: outpt f/u (8) Borderline hypertension: notes recent. med management Admission and Anticipated Discharge Date Admission Date: August 13, 2020 Subjective feeling ok. no further indigestion type pain no further back pain, arm a little sore from cath but nothing that she wouldn't expect. extensive discussion on ongoing management of CAD. Review of Systems Review of Systems: All systems reviewed & are unremarkable except as noted in HPI & below Physical Exam Physical Exam: gen aaox3 pleasant nad heent nc at mmm breathing unlabored no accessory muscles good effort skin no rashes no pallor or icterus neuro no focal deficits Results & Data Results & Data ([place]) Vital Signs (Past 12 Hours) Vital Signs Temp Pulse Pulse Resp BP BP Pulse Ox 08/14/20 12:32 88 20 125/80 95 08/14/20 11:55 91 H 18 128/82 95 08/14/20 11:35 88 20 136/87 95 08/14/20 11:19 80 20 131/83 97 08/14/20 11:01 81 20 138/81 95 08/14/20 10:35 77 20 119/73 94 08/14/20 10:05 78 18 128/77 98 08/14/20 09:35 97.7 F 85 20 128/77 96 08/14/20 09:20 99 H 18 101/83 94 08/14/20 09:05 97.9 F 78 18 134/80 94 08/14/20 09:00 77 16 136/79 94 08/14/20 08:46 84 16 133/78 95 08/14/20 07:17 72 08/14/20 07:11 111 H 17 146/87 H 98 08/14/20 06:58 98.4 F 112 H 18 148/94 H 96 PG Care Time/CCT Total # of Minutes Spent Total Time Spent with Patient: Total time spent is greater than 50% in coordination of care (as documented) at patient's floor/unit and/or counseling patient: Coding Level of Care Code 61165 Subseq Hosp Care Lvl 3 Diagnoses Acute non-ST elevation myocardial infarction (NSTEMI) I21.4 Coronary artery disease I25.10 DVT prophylaxis Z29.9 Discharge planning issues Z02.9 Hyperlipidemia E78.00; E78.0 Hyperlipidemia type: pure hypercholesterolemia Hypothyroidism E03.9 Hypothyroidism type: acquired Vitamin D deficiency E55.9 Borderline hypertension R03.0 (1) Hyperlipidemia Hyperlipidemia type: pure hypercholesterolemia Qualified Code(s): E78.00 - Pure hypercholesterolemia, unspecified; E78.0 - Pure hypercholesterolemia (2) Hypothyroidism Hypothyroidism type: acquired Qualified Code(s): E03.9 - Hypothyroidism, unspecified
[2020-08-14] MEDS: diphenhydrAMINE Capsule 25 MG CAP PO PRN ×2 (19:15→22:53)
[2020-08-15] MEDS: METOPROLOL TARTRATE 25 MG TAB PO SCH (07:39)
[2020-08-15] MEDS: ROSUVASTATIN CALCIUM 20 MG TAB PO SCH (07:40)
[2020-08-15] MEDS: ARMOUR THYROID 30 MG TAB PO SCH (07:40)
[2020-08-15] MEDS: lisinopril 5 MG TAB PO SCH (07:40)
[2020-08-15] MEDS: ASPIRIN 81 MG ECTAB PO SCH (07:41)
[2020-08-15] MEDS: TICAGRELOR 90 MG TAB PO SCH (07:41)
[2020-08-15] MEDS ORDERED: METOPROLOL SUCC 25MG EXT REL TAB PO SCH (09:00)
--- NOTE | 2020-08-15 09:11 | Cardiology Progress Note ---
Date of Service August 15, 2020 Assessment & Plan (1) Acute non-ST elevation myocardial infarction (NSTEMI): She is doing very well today. No recurrence of her index symptoms. Successful percutaneous intervention of the LAD yesterday. I think she would be stable for discharge. I would send her home on her current medical regimen which consists of high-dose rosuvastatin, aspirin, Brilinta, lisinopril 5 milligrams daily and metoprolol succinate 25 milligrams daily. She did have some regional wall motion abnormalities in very mild LV dysfunction on her preprocedure echocardiogram. I suspect this is simply stunned or hibernating myocardium and will resolve entirely over a few weeks. No evidence of heart failure. Will continue lisinopril and metoprolol succinate. I will get her an appointment to follow-up in our clinic in a couple of weeks. I will refer her to cardiac rehab. (2) Contrast media allergy: Unclear for rashes related to contrast administration. No pruritus. No evidence of a more severe allergic reaction. It is possible this related to medications as well, specifically Brilinta. I think if her rash resolves throughout the course of today we can blame it on the contrast. If not, I asked her to call the office tomorrow we will likely switch her from Brilinta to Plavix. Admission and Anticipated Discharge Date Admission Date: August 13, 2020 Subjective This morning the patient claims to be feeling well. She did develop a flushing sensation in her face and upper chest yesterday evening. This was associated with an erythematous rash. It did not appear to generalized to the back or arms. There was no pruritus. Otherwise she has been feeling well. She has been ambulatory without any recurrence of her index symptoms. No back pain or irritation. No dizziness or lightheadedness. No breathing difficulty. No pain at the radial access site, only mild discomfort in the brachial area. Review of Systems Review of Systems: Per HPI Physical Exam Physical Exam: She is alert and oriented x3. Mood affect appear normal. She answered all questions appropriately. HEENT: Sclerae are anicteric. Pupils are equal and reactive to light and accommodation. Extraocular movements were intact. Neuro: Cranial nerves intact Lungs: Lungs are clear to auscultation bilaterally. There are no rales wheezes or rhonchi. She has normal respiratory effort without use of accessory muscles. There is normal pulmonary excursion. Cardiac: The rhythm was regular. S1 and S2 were normal. There are no murmurs on examination. The PMI was not markedly displaced on palpation. Abdomen: The abdomen was soft and nontender. Extremities: Patient has bilateral radial pulses that are equal in intensity. There is no evidence cyanosis or clubbing. There was no evidence of significant peripheral edema bilaterally. good right radial pulse. Mild ecchymosis at the access site. Good perfusion of the right hand. Remainder of the arm is soft and minimally tender. Skin: Erythematous rash in the cheeks and upper chest. Also neck. Results & Data ([facility]) Vital Signs (Past 12 Hours) Vital Signs Temp Pulse Pulse Resp BP BP Pulse Ox 08/15/20 07:14 37.0 C 68 78 18 126/83 96 08/15/20 03:34 37 C 80 16 110/69 97 08/14/20 23:39 36.6 C 78 18 118/73 98 PG Care Time/CCT Total # of Minutes Spent Total Time Spent with Patient: Total time spent is greater than 50% in coordination of care (as documented) at patient's floor/unit and/or counseling patient: Coding Level of Care Code 23454 Subseq Hosp Care Lvl 2 Diagnoses Acute non-ST elevation myocardial infarction (NSTEMI) I21.4 Contrast media allergy Z91.041
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
--- NOTE | 2020-08-17 09:25 | Coding Query ---
CONGESTIVE HEART FAILURE To Promote full compliance with coding requirements relating to patient care, physician participation is requested in all cases of telecommunications linesworker uncertainty. Please assist us with the following questions. A diagnosis of HFREF is documented in the patient's medical record on Progress Note 08/14 and on the Discharge Summary, however, the Cardiology Progress Note on 08/15 documents no evidence of Heart Failure. Due to conflicting documentation and to accurately code this diagnosis and to compare patient severity, we ask that you specify the type of heart failure by placing an X within the parenthesis (x). ( ) SYSTOLIC HEART FAILURE. Please Specify further below: ( ) Acute ( ) Chronic ( ) Acute on Chronic ( ) Rheumatic ( ) Unknown ( x ) No Heart Failure - it is Ruled-Out If there was CHF - Was the CHF Present On Admission? Please check the appropriate box: ( ) Present on Admission (x ) Not Present On Admission ( ) Clinically undetermined Thank you Sujata STEPHENS
== END 2020-08-15 15:50 | disposition home or self-care (01) | DRG 247 ==
LOC: ED 01:35 → SUATTDRO 03:52 → 2S 03:52